=== PATIENT | female | born 1960 | race Caucasian/White ===

== ENCOUNTER 2016-08-15 14:58 | Emergency (ER) | payer OTHER ==
[~2016-08-15] VITALS: Ht 157.5 cm; Wt 70.2 kg
[~2016-08-15 14:58] MED LIST: ADDERALL XR 2020 MG PO; ADDERALL20 MG; ADDERALL20 MG PO; ADDERALL5 MG; ALLEGRA60 MG PO; AMBIEN10 MG PO; ARTHROTEC 751 TABLET; ARTHROTEC 751 TABLET PO; BUSPAR10 MG PO; BUSPAR5 MG PO; CATAPRES-TTS 11 EACH TD; CELEBREX100 MG PO; CELEXA; CLONIDINE HCL0.1 MG PO; CYMBALTA60 MG PO; DICLOFENAC SODI50 MG PO; DOLOPHINE HCL5 MG PO; FLEXERIL10 MG PO; FLUTICASONE PRO16 GM BOTH NARES; HYDROCODON-ACE1 EAC7 PO; KLONOPIN0.5 M1; KLONOPIN1 MG PO; LIDODERM 5% P1 PATCH TD; LISINOPRIL10 MG PO; LISINOPRIL2.5 MG; MELOXICAM7.5 MG; METHADONE5 MG PO; MOBIC15 MG PO; MOTRIN800 MG PO; NAPROSYN-EC500 MG PO; NAPROSYN500 MG PO; NASONEX17 GM; NEURONTIN300 MG PO; NEURONTIN600 MG PO; NORVASC5 MG PO; PERCOCET 5/31 TABLET PO; PROAIR HFA8.5 GM IH; PROMETHAZINE HC25 M1 PO; PROTONIX20 MG PO; PROTONIX40 MG PO; RISPERIDONE0.25 MG; RISPERIDONE0.5 MG PO; ULTRAM50 MG PO; VICODIN 5-3001 EACH PO; VISTARIL50 M1 PO; VITAMIN D250000 UNIT PO; XYZAL5 MG PO; ZIPRASIDONE HCL40 MG PO; ZOFRAN4 MG PO; ZYRTEC10 M1 PO; ZYRTEC5 MG; [UNRECOGNIZED DRUG - REMARK] PO; [UNRECOGNIZED DRUG - REMARK] PO; [UNRECOGNIZED DRUG - REMARK] PO
[2016-08-15 16:28] VITALS: BP 156/93
[2016-08-15] MEDS ORDERED: LIDODERM 5% P1 PATCH TD (16:32)
== END 2016-08-15 16:43 | disposition home or self-care (01) ==
LOC: EME 14:58
DX: M23.91 Unspecified internal derangement of right knee (principal); M25.461 Effusion, right knee; F17.200 Nicotine dependence, unspecified, uncomplicated; I10 Essential (primary) hypertension
CPT/HCPCS: 73564; 99281; 99283

== ENCOUNTER 2017-01-13 15:36 | Observation (INO) | payer OTHER ==
[~2017-01-13] VITALS: Ht 157.5 cm; Wt 56.3 kg
[2017-01-13 16:51] LABS: MCH 31.4 PG (29.0-34.0); MCHC 33.2 G/DL (30.0-36.0); MCV 94.6 FL (83-99); MEAN PLAT.VOLUME 8.7 uM^3 (9.5-12.4); PLATELET COUNT 450 K/uL (156-360); RBC DIS.WIDTH-CV 13.8 % (11.8-14.6); RBC DIS.WIDTH-SD 47.5 % (39-53); RED BLOOD COUNT 4.65 M/uL (3.80-5.20); WHITE BLOOD COUNT 17.8 K/uL (4.1-10.2)
[2017-01-13 16:59] LABS: CHLORIDE 109 mEq/L (99-109); POTASSIUM 4.3 mEq/L (3.7-5.4); SODIUM 139 mEq/L (136-147)
[2017-01-13 17:02] LABS: ADD MIUA? YES; BILIRUBIN NEGATIVE; BLOOD SMALL; COLOR YELLOW ((YELLOW)); GLUCOSE (STRIP) NEGATIVE; KETONES NEGATIVE; LEUKOCYTES NEGATIVE; NITRITE POSITIVE; PROTEIN (STRIP) 30; SPECIFIC GRAVITY 1.018 (1.000-1.030); UROBILINOGEN 0.2 MG/DL (0.2-1.0)
[2017-01-13 17:02] LABS: GLUCOSE 104 mg/dL (70-99)
[2017-01-13 17:03] LABS: ANION GAP 12 MEQ/L (2-14); TOTAL BILIRUBIN 0.3 mg/dL (0.0-1.0)
[2017-01-13 17:04] LABS: SERUM ETHYL ALCOHOL < 10 mg/dL
[2017-01-13 17:05] LABS: ALKALINE PHOSPHATASE 99 IU/L (3-129); GFR ESTIMATE (CALCULATED) > 59 mL/min/
[2017-01-13 17:06] LABS: UREA NITROGEN (BUN) 11 mg/dL (9-23)
[2017-01-13 17:07] LABS: BACTERIA RARE /HPF; EPITHELIAL CELLS RARE /HPF; MUCUS TRACE /LPF; RED BLOOD CELLS 0-5 /HPF (0-5); WHITE BLOOD CELLS 0-5 /HPF (0-5)
[2017-01-13 17:11] LABS: ADD MEDTOX COMMENT Y; AMPHETAMINE PRESUMPTIVE POSITIVE (500 ng/mL); BARBITURATES NEGATIVE (200 ng/mL); BENZODIAZEPINES NEGATIVE (150 ng/mL); COCAINE NEGATIVE (150 ng/mL); INTERNAL CONTROLS VALID? YES; METHADONE PRESUMPTIVE POSITIVE (200 ng/mL); METHAMPHETAMINE NEGATIVE (500 ng/mL); OPIATES (MORPHINE) NEGATIVE (100 ng/mL); OXYCODONE NEGATIVE (100 ng/mL); PHENCYCLIDINE NEGATIVE (25 ng/mL); PROPOXYPHENE NEGATIVE (300 ng/mL); THC CANNABINOIDS NEGATIVE (50 ng/mL); TRICYCLIC ANTIDEPRESSANTS NEGATIVE (300 ng/mL)
[2017-01-13] MEDS ORDERED: GABAPENTIN400 MG PO (20:02)
[2017-01-13] MEDS ORDERED: GEODON80 MG PO (20:03)
[2017-01-13] MEDS ORDERED: CYMBALTA30 MG PO (20:04)
[2017-01-13] MEDS ORDERED: VYVANSE60 MG PO (20:05)
[2017-01-13] MEDS ORDERED: LAMICTAL XR300 MG PO (20:06)
[2017-01-13] MEDS ORDERED: PANTOPRAZOLE SO40 MG PO (20:07)
[2017-01-13] MEDS ORDERED: PREMARIN0.625 MG PO (20:08)
[2017-01-13] MEDS ORDERED: CLONAZEPAM0.5 MG PO (20:15)
[2017-01-13] MEDS ORDERED: FERROUS SULFAT325 MG PO (20:15)
[2017-01-13] MEDS ORDERED: LISINOPRIL20 MG PO (20:16)
[2017-01-13] MEDS ORDERED: LORATADINE10 M2 PO (20:17)
[2017-01-14 00:02] VITALS: BP 146/81
[2017-01-14] MEDS ORDERED: CATAPRES0.2 MG PO (00:15)
[2017-01-14 03:57] VITALS: BP 102/67
[2017-01-14 06:55] LABS: HDL CHOLESTEROL 61 MG/DL (Desirable>=50); LDL CHOLESTEROL 36 mg/dL (Desirable<100); NON-HDL CHOLESTEROL 58 mg/dL (Desirable<160); TOTAL CHOLESTEROL 119 mg/dL (Desirable<200); TRIGLYCERIDES 110 MG/DL (Normal: <150)
[2017-01-14 07:10] VITALS: BP 102/53
[2017-01-14 07:57] LABS: Estimated Average Glucose 114 mg/dL (70-123); HEMOGLOBIN A1c (GLYCOHEMOGLOB) 5.6 % HGB (Below 5.7)
[2017-01-14 08:24] LABS: BASOPHIL COUNT 0.1 K/uL (0-0.1); EOSINOPHIL (%) 2.4 % (0-5); EOSINOPHIL COUNT 0.4 K/uL (0-0.3); HEMATOCRIT 41.9 % (36.0-46.0); IMMATURE GRANULOCYTE (%) 0.4 % (0.0-0.7); IMMATURE GRANULOCYTE COUNT 0.1 K/uL; INSTRUMENT ABS NEUTROPHIL CT 7.6 K/uL; LYMPHOCYTE COUNT 6.5 K/uL (1.0-2.8); MCH 31.6 PG (29.0-34.0); MCHC 32.9 G/DL (30.0-36.0); MCV 95.9 FL (83-99); MEAN PLAT.VOLUME 9.2 uM^3 (9.5-12.4); MONOCYTE (%) 6.4 % (3-12); NEUTROPHIL (%) 48.6 % (45-76); NEUTROPHIL COUNT 7.6 K/uL (1.8-6.4); PLATELET COUNT 446 K/uL (156-360); RBC DIS.WIDTH-CV 13.7 % (11.8-14.6); RBC DIS.WIDTH-SD 48.6 % (39-53); RED BLOOD COUNT 4.37 M/uL (3.80-5.20); WHITE BLOOD COUNT 15.7 K/uL (4.1-10.2)
[2017-01-14 08:35] LABS: ALKALINE PHOSPHATASE 78 IU/L (3-129); ANION GAP 11 MEQ/L (2-14); CHLORIDE 107 MEQ/L (99-109); GFR ESTIMATE (CALCULATED) > 59 mL/min/; GLUCOSE 89 mg/dL (70-99); POTASSIUM 4.1 MEQ/L (3.7-5.4); SODIUM 140 MEQ/L (136-147); TOTAL BILIRUBIN 0.4 MG/DL (0.0-1.0); UREA NITROGEN (BUN) 14 mg/dL (9-23)
[2017-01-14 12:33] VITALS: BP 88/50
[2017-01-14 15:23] VITALS: BP 101/57
== END 2017-01-14 16:43 | disposition home or self-care (01) ==
LOC: EME 15:36 → EDOF 21:52 → 5WEST 21:52 → ENRESERV 21:56 → 5WEST 23:41
PROVIDERS: Emergency Medicine; Physician Assistant
DX: G45.9 Transient cerebral ischemic attack, unspecified (principal); F31.9 Bipolar disorder, unspecified; R51 Headache; D72.829 Elevated white blood cell count, unspecified; D69.59 Other secondary thrombocytopenia; Z90.81 Acquired absence of spleen; F14.10 Cocaine abuse, uncomplicated; B19.20 Unspecified viral hepatitis C without hepatic coma; F17.210 Nicotine dependence, cigarettes, uncomplicated; Z90.49 Acquired absence of other specified parts of digestive tract
CPT/HCPCS: 70450; 70551; 80053; 80061; 81003; 83036; 84999; 85025; 85027; 93306; 93880; 99281; 99285; G0378; G0480; J0696; J1200; J1650; J1885; J2765; J7050

== ENCOUNTER 2017-06-12 12:52 | Emergency (ER) | payer OTHER ==
[~2017-06-12] VITALS: Ht 157.5 cm; Wt 61.2 kg
[~2017-06-12 12:52] MED LIST changes: +CATAPRES0.2 MG PO; +CLONAZEPAM0.5 MG PO; +CYMBALTA30 MG PO; +FERROUS SULFAT325 MG PO; +GABAPENTIN400 MG PO; +GEODON80 MG PO; +LAMICTAL XR300 MG PO; +LISINOPRIL20 MG PO; +LORATADINE10 M2 PO; +PANTOPRAZOLE SO40 MG PO; +PREMARIN0.625 MG PO; +VYVANSE60 MG PO
[2017-06-12 15:00] VITALS: BP 129/81
[2017-06-12] MEDS ORDERED: ZOFRAN4 MG SL (15:51)
== END 2017-06-12 16:26 | disposition home or self-care (01) ==
LOC: EME 12:52
DX: S01.81XA Laceration without foreign body of other part of head, initial encounter (principal); M54.2 Cervicalgia; W22.09XA Striking against other stationary object, initial encounter; Z23 Encounter for immunization; I10 Essential (primary) hypertension; F32.9 Major depressive disorder, single episode, unspecified
CPT/HCPCS: 70450; 72125; 99281; 99285

== ENCOUNTER 2017-10-10 09:02 | Emergency (ER) | payer OTHER ==
[~2017-10-10] VITALS: Ht 157.5 cm; Wt 58.1 kg
[~2017-10-10 09:02] MED LIST changes: +ZOFRAN4 MG SL
[2017-10-10 10:38] VITALS: BP 142/88
== END 2017-10-10 10:40 | disposition home or self-care (01) ==
LOC: EME 09:02
DX: S29.011A Strain of muscle and tendon of front wall of thorax, initial encounter (principal); W01.0XXA Fall on same level from slipping, tripping and stumbling without subsequent striking against object, initial encounter; I10 Essential (primary) hypertension
CPT/HCPCS: 71046; 99281; 99284